=== PATIENT | male | born 1975 | race Caucasian/White ===

== ENCOUNTER 2023-08-15 00:48 | Day surgery (SDC) | payer BC, SELFPAY ==
[2023-07-22 10:07] VITALS: BMI 25.9
--- NOTE | 2023-08-13 11:21 | SUR.PREOP ---
Patient called regarding upcoming procedure. Message left on pt's voicemail regarding appointment times..
[2023-08-15 08:47] VITALS: BP 123/84; PULSE 86; RESP 16; TEMP 36.2; O2SAT 99
[2023-08-15] MEDS: LACTATED RINGERS 1,000 ML 150 ML IV CONT (08:55)
--- NOTE | 2023-08-15 09:25 | P.PNAN_ITS ---
Anes - Initial Pre Proc Eval Procedure: Operation Date: 08/15/23 10:00 Proposed Procedures p Screening Colonoscopy - Gutierrez Ramires MD Date/Time: 08/15/23 09:25 Surgeon: Gutierrez Ramires MD Pre Op Diagnosis: neoplasm screening Patient Data Age: 47 Gender: M Height: 1.8 m Weight: 83.5 kg Last Vital Signs Temp 97.2 F L 08/15/23 08:47 Pulse 86 08/15/23 08:47 Resp 16 08/15/23 08:47 BP 123/84 08/15/23 08:47 Pulse Ox 99 08/15/23 08:47 O2 Del Method Room Air 08/15/23 08:47 Allergies Allergy/AdvReac Type Severity Reaction Status Date / Time NKDA Allergy Mild Other Uncoded 08/15/23 08:46 Home Medications Medication Instructions Recorded Confirmed Type esomeprazole magnesium 40 mg 40 mg PO DAILY 07/22/23 08/15/23 History capsule,delayed release trazodone 50 mg tablet 50 mg PO HS 07/22/23 08/15/23 History Patient hx anesthesia problems: none Family hx anesthesia problems: none Results Review: All pre-operative results and documents have been reviewed as part of the pre- operative evaluation. [facility] Social History Social History Smoking status: Never smoker Substance use type: does not use Living arrangements: other Additional living arrangements comments: with sp Anes - Eval Final PreProcedure Day of Procedure 08/15/23 09:25 Patient weight: normal Heart: regular rate and rhythm Lungs: clear to auscultation Airway: Mallampati scale class II Neurological: alert and oriented Last oral intake: >/= 8 hours ASA classification: II Emergent: no Anesthetic plan: proceed Anesthesia type and monitoring: general GIVS and standard monitoring Results Review: All pre-operative results and documents have been reviewed as part of the pre- operative evaluation. Informed Consent: The patient's anesthetic plan and its attendant risks and benefits were discussed with the patient/family/POA. Questions were solicited and answers provided to the satisfaction of the patient/family/POA.
--- NOTE | 2023-08-15 10:27 | PM.HPGS ---
History of Present Illness History of Present Illness Consent: Risks, benefits, and alternatives have been discussed and questions answered. Patient agrees to proceed with procedure. Chief complaint: neoplasm screening Narrative: Juanjose Lucia III is a 47 year old male here for first screening colonoscopy Review of Systems Constitutional: Constitutional: Denies headache(s) and Denies weakness Eyes: Eyes: Denies blurry vision ENT: Reports Normal hearing present, Denies headache(s) and Denies neck pain Cardiovascular: Cardiovascular: Denies chest pain and Denies dyspnea Respiratory: Respiratory: Denies dyspnea Gastrointestinal: Gastrointestinal: Reports no additional gastrointestinal complaints Genitourinary: Genitourinary: Denies dysuria Musculoskeletal: Musculoskeletal: Denies neck pain Integumentary/Breasts: Skin/Breast: Denies dry skin Neurologic: Reports Normal hearing present, Denies headache(s) and Denies weakness Psychiatric: Psychiatric: Denies anxiety Endocrine: Endocrine: Denies change in body appearance Hematologic/Lymphatic: Hematologic/Lymphatic: Denies easy bleeding Allergic/Immunologic: Allergic/Immunologic: Denies urticaria PMFSH Past Medical History Medical History (Updated 08/15/23 @ 10:27 by Gutierrez Ramires MD) Colon cancer screening Social History Social History Smoking status: Never smoker Substance use type: does not use Living arrangements: other Additional living arrangements comments: with sp Meds Home Medications and Allergies Home Medications Medication Instructions Recorded Confirmed Type esomeprazole magnesium 40 mg 40 mg PO DAILY 07/22/23 08/15/23 History capsule,delayed release trazodone 50 mg tablet 50 mg PO HS 07/22/23 08/15/23 History Allergies Allergy/AdvReac Type Severity Reaction Status Date / Time NKDA Allergy Mild Other Uncoded 08/15/23 08:46 Vital Signs Vital Signs - 24 hr 08/15/23 08:47 Temperature 97.2 F L Pulse Rate 86 Respiratory Rate 16 Blood Pressure 123/84 Pulse Oximetry 99 Oxygen Delivery Room Air Exam Const: General: comfortable and no acute distress HENMT: Face/Nose/Sinus: Normal nares present Eyes: General: appearance normal, both eyes and all related structures Neck: Neck: no JVD Resp: Auscultation: clear to auscultation bilaterally Cardio: Rate: regular rate Rhythm: regular rhythm GI: Inspection: non-distended GI Palp: Yes Soft to palpation Skin: General skin exam: normal color Neuro: General: gait normal Speech: normal speech Extrem: General: normal to inspection Psych: Mental Status: mental status grossly normal Assessment and Plan Assessment and plan (1) Colon cancer screening: Code(s): Z12.11 - Encounter for screening for malignant neoplasm of colon Status: Acute Assessment and Plan: colonoscopy
[2023-08-15 10:53] VITALS: BP 111/80; PULSE 84; RESP 16; O2SAT 99
[2023-08-15 11:03] VITALS: BP 110/76; PULSE 77; RESP 16; O2SAT 98
[2023-08-15 11:13] VITALS: BP 112/83; PULSE 75; RESP 16; O2SAT 100
== END 2023-08-15 11:25 | disposition home or self-care (01) ==
PROVIDERS: PCP Internal Medicine; Visit Provider Internal Medicine Gastroenterology
PROC: 0DJD8ZZ Inspection of Lower Intestinal Tract, Via Natural or Artificial Opening Endoscopic (ICD-10-PCS; CPT 45378; principal; 2023-08-15 10:00)
DX: Z12.11 Encounter for screening for malignant neoplasm of colon (principal); D12.0 Benign neoplasm of cecum; D12.5 Benign neoplasm of sigmoid colon; K57.30 Diverticulosis of large intestine without perforation or abscess without bleeding; K64.8 Other hemorrhoids
CPT/HCPCS: 45385; 88305; J2704; J7120

== ENCOUNTER 2024-09-14 12:20 | Emergency (ER) | payer BC, SELFPAY ==
--- NOTE | ~2024-09-14 | XR_ITS ---
CHEST RADIOGRAPH CLINICAL HISTORY: L chest pain . COMPARISON: 03/05/2013 TECHNIQUE: Single portable view of the chest. FINDINGS The cardiomediastinal silhouette is unremarkable. The lungs are clear. Visualized osseous structures and soft tissues are unremarkable. IMPRESSION: No focal infiltrate or effusion. Reviewed, dictated and finalized at location A. COVERER
--- NOTE | 2024-09-14 12:25 | ECG_ITS ---
This report was recreated on [id number] on September 15, 2024. Original report was signed by Dr. Maximus Lamas on September 14, 2024 at 12:52. SINUS RHYTHM INCOMPLETE RIGHT BUNDLE BRANCH BLOCK LOW QRS VOLTAGE IN PRECORDIAL LEADS BASELINE ARTIFACT- I, II, III, AVR, AVL, AVF, V# BORDERLINE ECG No previous ECG available for comparison MTDD
[2024-09-14 12:45] LABS: Basophils Percent Auto 0.6 % (0.2-1.2); Eosinophils Absolute Auto 0.2 K/mm3 (0-0.3); Eosinophils Percent Auto 3.2 % (0-4.4); Hematocrit 49.1 % (42.0-52.0); Hemoglobin 16.9 g/dL (14.0-18.0); Immature Granulocyte Absolute 0.02 K/mm3 (0.00-0.031); Immature Granulocyte Percent A 0.4 % (0-0.5); Lymphocytes Absolute Auto 0.81 K/mm3 (0.9-3.2); Lymphocytes Percent Auto 17.1 % (18.3-44.2); Mean Corpuscular HGB Conc 34.4 g/dl (32-36); Mean Corpuscular Hemoglobin 31.3 pg (26-34); Mean Corpuscular Volume 90.9 fl (80-100); Mean Platelet Volume 10.3 fl (7.4-10.4); Monocytes Absolute Auto 0.4 K/mm3 (0.1-0.6); Monocytes Percent Auto 7.4 % (2.6-8.5); Neutrophils Absolute Auto 3.4 K/mm3 (1.3-6.7); Neutrophils Percent Auto 71.3 % (45.5-73.1); Platelet Count Result 247 k/mm3 (150-375); Red Cell Distribution Width 11.8 % (11.5-14.5); White Blood Count 4.7 K/mm3 (4.5-10.0)
--- NOTE | 2024-09-14 12:52 | PC.NURSE ---
Called twice for triage. Pt not in waiting room or outside
[2024-09-14 13:00] LABS: Alanine Aminotransferase 37 U/L (6-50); Albumin Level 4.5 g/dL (3.5-5.1); Alkaline Phosphatase 54 U/L (38-126); Aspartate Amino Transferase 33 U/L (17-59); Bilirubin,Total 0.8 mg/dL (0.2-1.3); Blood Urea Nitrogen 18 mg/dL (9-20); Calcium 9.8 mg/dL (8.4-10.2); Carbon Dioxide 27 mmol/L (22-30); Estimated Glomerular Filt Rate 59; Glucose 96 mg/dL (65-110); Lipase 194 U/L (23-300)
[2024-09-14 13:07] LABS: Troponin I < 0.012 ng/mL (0.000-0.034)
[2024-09-14 13:10] LABS: Anion Gap 10 mmol/L (4-12); Chloride 101 mmol/L (98-107); Potassium 3.9 mmol/L (3.4-5.0); Sodium 138 mmol/L (137-145)
[2024-09-14 13:11] LABS: Prothrombin Time 13.1 Seconds (11.1-14.7)
[2024-09-14 13:12] LABS: Partial Thromboplastin Time 27.7 Seconds (22.3-36.8)
--- NOTE | 2024-09-14 15:47 | ECG_ITS ---
Test Date: 2024-09-14 16:13:45 Measurements Intervals [place] Rate: 75 P: 43 [place]: 143 QRS: -26 QRSD: 92 T: 26 QT: 349 QTc: 390 Interpretive Statements SINUS RHYTHM INCOMPLETE RIGHT BUNDLE BRANCH BLOCK BASELINE ARTIFACT- I, II, V1 BORDERLINE ECG Compared to ECG 09/14/2024 12:25:25 No significant changes Electronically Signed On 09-14-2024 20:14:05 IT SUPPORT CONSULTANT by Maximus Lamas D.O.
--- NOTE | 2024-09-14 16:07 | ECG_ITS ---
Test Date: 2024-09-14 12:25:25 Measurements Intervals [place] Rate: 70 P: 52 [place]: 142 QRS: -13 QRSD: 99 T: 44 QT: 359 QTc: 389 Interpretive Statements SINUS RHYTHM INCOMPLETE RIGHT BUNDLE BRANCH BLOCK LOW QRS VOLTAGE IN PRECORDIAL LEADS BASELINE ARTIFACT- I, II, III, AVR, AVL, AVF, V1-V4 BORDERLINE ECG No previous ECG available for comparison Electronically Signed On 09-14-2024 19:59:24 INK PRINTER by Maximus Lamas D.O.
--- OUTSIDE RECORDS SUMMARY | 2024-09-14 16:14 | XMS_ITS | Clinical Summary ---
Author Organization [facility] Address [address] [address] Phone Care Team Providers Care Otolaryngology Surgeon Name Role Phone Unavailable Primary Care Provider Unavailabl e Allergies No known active allergies Medications cetirizine (ZyrTEC) 10 MG Tablet 10 mg. 10/20/2007 Active esomeprazole (NexIUM) 40 MG CAPSULE DELAYED RELEASE 09/07/2021 Active Active Problems No known active problems Immunizations Immunization Administration Dates Next Due Covid-19 Vaccine, Vector-nr, Rs-ad26, Pf, 0.5 Ml ([employer]) 11/06/2020 DTP Vaccine 02/09/1982, 8,02/01/1977,1976,1976 Hepatitis A And Hepatitis B Vaccine 08/16/2010 MMR Vaccine 02/19/1991 Measles Vaccine 11/29/1977 Mumps Vaccine 09/03/1978 Rubella Vaccine 09/03/1978 TD VACCINE 02/19/1991 TDAP Vaccine 08/16/2010 Family History Medical History Relation Name Comments Alzheimer's Disease Father Relation Name Status Comments Father Social History Tobacco Use Types Packs/Day Years Used Date Smoking Tobacco: Never Smokeless Tobacco: Never Tobacco Cessation:Counseling Given: No Alcohol Use Standard Drinks/Week Comments Not Currently 0 (1 standard drink = 0.6 oz pur e alcohol) Sexually Active Control Partners Comments Not Currently Sex and Gender Information Value Date Recorded Sex Assigned at Not on file Legal Sex Male 9:36 PM CDT Gender Identity Not on file Sexual Orientation Not on file Last Filed Vital Signs Vital Sign Reading Time Taken Comments Blood Pressure 118/70 10/22/2021 9:11 AM CDT Pulse 68 10/22/2021 9:11 AM CDT Temperature - - Respiratory Rate 18 10/22/2021 9:11 AM CDT Oxygen Saturation 99% 10/22/2021 9:11 AM CDT Inhaled Oxygen Concentration - - Weight 88 kg (194 lb) 10/22/2021 9:11 AM CDT Height 180.3 cm (5' 11 ) 10/22/2021 9:11 AM CDT Body Mass Index 27.06 10/22/2021 9:11 AM CDT Plan of Treatment Health Maintenance Due Date Last Done Comments Hepatitis C Virus (HCV) Screening 1976 Hepatitis B Immunization (2 of 3 - Hep B Twinrix 3-dose series) 09/13/2010 08/16/2010 DTaP/Tdap/Td Immunization (7 - Td or Tdap) 08/16/2020 08/16/2010, 02/19/1991, 02/09/1982, Additional history exists Colonoscopy 2021 Colorectal Cancer Screening 2021 Influenza Immunization (#1) 2024 SARS-COV-2 Immunization (2 - season) 2024 11/06/2020 Respiratory Syncytial Virus (RSV) Immunization (Adult) (1 - 1-dose 75+ series) 2051 Meningococcal Immunization (ACWY) Aged Out No longer eligible based on patient's age to complete this topic Pneumococcal Immunization Combined Aged Out No longer eligible based on patient's age to complete this topic Rotavirus Immunization Aged Out No lo nger eligible based on patient's age to complete this topic Insurance
[2024-09-14 16:16] VITALS: BP 116/82; PULSE 77; RESP 21; O2SAT 98
[2024-09-14 16:31] VITALS: BP 121/86; PULSE 83; RESP 13; O2SAT 97
--- NOTE | 2024-09-14 16:43 | PC.NURSE ---
according to intake/cigar patcher's, this pt was accidentally registered under wrong name. pt had Chest Pain protocol performed including initial blood work and ekg. pt was then put under correct name and results were printed for staff on paper chart. notified provider of this
[2024-09-14 16:45] VITALS: PULSE 81; RESP 18; O2SAT 99
[2024-09-14 16:50] LABS: Troponin I < 0.012 ng/mL (0.000-0.034)
[2024-09-14 16:56] VITALS: BP 114/67; PULSE 74; RESP 12; TEMP 36.7; O2SAT 99
--- NOTE | 2024-09-14 16:56 | ED.CHESTPAIN ---
HPI - Chest Pain General Chief Complaint: Chest Pain Stated Complaint: chest pain Time Seen by Provider: 09/14/24 16:15 History of Present Illness HPI narrative: Patient presents here with chest pain, he has had bad insomnia since COVID, doing well on trazodone, but it stopped working, so a post doc band, worked well for the 1st few days but then had some slight palpitations and last night had palpitations and left-sided chest discomfort and cannot fall asleep. Called his doctor told him to get checked out. Related Data Home Medications ?Medication ?Instructions ?Recorded ?Confirmed ?Last Taken ?Type esomeprazole magnesium 40 mg 40 mg PO DAILY 07/22/23 08/15/23 08/14/23 History capsule,delayed release trazodone 50 mg tablet 50 mg PO HS 07/22/23 08/15/23 08/14/23 History Allergies Allergy/AdvReac Type Severity Reaction Status Date / Time Penicillins Allergy Mild Other Unverified 03/26/24 10:03 NKDA Allergy Mild Other Uncoded 08/15/23 08:46 Review of Systems Review of Systems: All systems reviewed & are unremarkable except as noted in HPI and below PMFSH Past Medical History Medical History (Updated 09/14/24 @ 17:35 by Kaye Beckwith MD) Colon cancer screening Hypertriglyceridemia Impaired fasting blood sugar Encounter for screening for malignant neoplasm of prostate Screening cholesterol level Hypertension Erectile dysfunction Low testosterone Hypertriglyceridemia Impaired fasting blood sugar Encounter for screening for malignant neoplasm of prostate Screening cholesterol level Hypertension Erectile dysfunction Low testosterone Surgical History Surgical History (Updated 09/14/24 @ 16:28 by Gustavo Anderson) No history of previous surgery No history of previous surgery Social History Social History Smoking status: Never smoker Substance use type: does not use Living arrangements: other Additional living arrangements comments: with sp Exam Narrative: EXAMINATION OF ORGAN SYSTEMS/BODY AREAS: Constitutional: Vital signs per nursing GENERAL:[No acute distress, non-toxic appearing.] HEAD: Normal with no signs of head trauma. EYES: EOMI, conjunctiva normal ENT: Hearing grossly intact LUNGS: Nonlabored breathing. HEART: [Regular rate and rhythm], normal pulses ABD: [Soft], [nontender to palpation] EXT: Normal range of motion SKIN: [No rashes or lesions.] NEURO: [Alert and oriented x 3. No gross focal sensory or strength deficits.] PSYCH: Normal affect Course Vital Signs Vital signs: Vital Signs Pulse Rate 77 09/14/24 16:16 Respiratory Rate 21 H 09/14/24 16:16 Blood Pressure 116/82 09/14/24 16:16 Pulse Oximetry 98 09/14/24 16:16 Temperature 98.0 F 09/14/24 16:56 Pulse Rate 74 09/14/24 16:56 Respiratory Rate 12 09/14/24 16:56 Blood Pressure 114/67 09/14/24 16:56 Pulse Oximetry 99 09/14/24 16:56 Oxygen Delivery Room Air 09/14/24 16:56 MDM - Chest Pain MDM Narrative Medical decision making narrative: ED COURSE AND MEDICAL DECISION MAKINM presenting with chest pain. EKG done in triage negative for acute ischemic changes. Cardiac workup is initiated. EKG: Performed in triage and interpreted by me. Normal sinus rhythm. Rate [75]. Normal axis. NM normal. QRS duration normal. QTc normal. No pathologic Q waves. No ST segment elevation or depression to suggest acute ischemia. No RV strain pattern. Chest x-ray on my independent interpretation does not show any obvious acute consolidation or pneumothorax HEART score is 0 with no acute ischemic changes on EKG and negative troponin making ACS unlikely. Negative PERC making PE unlikely. Presentation not consistent with dissection or aneurysm without radiation of pain or pulse deficits. CXR negative for mediastinal widening. No abdominal pain or signs of sepsis that would be concerning for esophageal perforation or mediastinitis. No cardiomegaly or JVD to suggest pericardial effusion/tamponade. HEART Score: 1. (Risk of major adverse cardiac events over 6 weeks: Score of 0-3 is low risk <2% ; Score of 4-6 is moderate risk ~12-15%; Score of 7-12 is high risk ~50%). On repeat evaluation just prior to discharge, the patient is no acute distress. I had a long discussion with the patient and with shared decision making, [he] is comfortable with outpatient management. [He] was given clear return instructions by myself in person as well as on discharge paperwork. Lab Data 09/14/24 12:32 09/14/24 12:32 Labs: Lab Results 09/14/24 09/14/24 09/14/24 Range/Units 12:32 12:33 16:21 WBC 4.7 (4.5-10.0) K/mm3 RBC 5.40 (4.6-6.20) M/mm3 Hgb 16.9 (14.0-18.0) g/dL Hct 49.1 (42.0-52.0) % MCV 90.9 (80-100) fl MCH 31.3 (26-34) pg MCHC 34.4 (32-36) g/dl RDW 11.8 (11.5-14.5) % Plt Count 247 (150-375) k/mm3 MPV 10.3 (7.4-10.4) fl Immature Gran % (Auto) 0.4 (0-0.5) % Neut % (Auto) 71.3 (45.5-73.1) % Lymph % (Auto) 17.1 L (18.3-44.2) % [place] % (Auto) 7.4 (2.6-8.5) % Eos % (Auto) 3.2 (0-4.4) % Baso % (Auto) 0.6 (0.2-1.2) % Lymph # (Auto) 0.81 L (0.9-3.2) K/mm3 [place] # (Auto) 0.4 (0.1-0.6) K/mm3 Eos # (Auto) 0.2 (0-0.3) K/mm3 Baso # (Auto) 0.0 (0.0-0.1) K/mm3 Abs Immat Gran (auto) 0.02 (0.00-0.031) K/mm3 Absolute Neuts (auto) 3.4 (1.3-6.7) K/mm3 Absolute Nucleated RBC 0.000 (0.0-0.012) K/mm3 Nucleated RBC % 0.0 (0.0-0.2) % PT 13.1 (11.1-14.7) Seconds INR 1.0 APTT 27.7 (22.3-36.8) Seconds Sodium 138 (137-145) mmol/L Potassium 3.9 (3.4-5.0) mmol/L Chloride 101 (98-107) mmol/L Carbon Dioxide 27 (22-30) mmol/L Anion Gap 10 (4-12) mmol/L BUN 18 (9-20) mg/dL Creatinine 1.30 (0.7-1.3) mg/dL Estimated GFR 59 (59 - ) Glucose 96 (65-110) mg/dL Calcium 9.8 (8.4-10.2) mg/dL Total Bilirubin 0.8 (0.2-1.3) mg/dL AST 33 (17-59) U/L ALT 37 (6-50) U/L Alkaline Phosphatase 54 (38-126) U/L Troponin I < 0.012 < 0.012 (0.000-0.034) ng/mL Total Protein 8.0 (6.3-8.2) g/dL Albumin 4.5 (3.5-5.1) g/dL Lipase 194 (23-300) U/L Influenza A (RT-PCR) Negative (Negative) Influenza B (RT-PCR) Negative (Negative) RSV (RT-PCR) Negative (Negative) SARS-CoV-2 RNA (RT-PCR) Negative (Negative) Discharge Plan Discharge Clinical Impression: Atypical chest pain Patient Disposition: Home, Self-Care Condition: Stable Instructions: Chest Pain (ED) Additional Instructions: Please call your doctor for follow-up as you may need changes to your medication, you can always return to the emergency room for any further issues. Patient Language: Frisian Prescriptions: No Action trazodone 50 mg tablet 50 mg PO HS esomeprazole magnesium 40 mg capsule,delayed release(DR/EC) 40 mg PO DAILY Follow-up/Referrals: Guillermo,Barber Marsh MD [Primary Care Provider] - Sridevi Chopra PARiccardoC [Physician Fitness And Wellness Instructor] -
[2024-09-14 17:02] LABS: Influenza A QL RT-PCR Negative (Negative); Influenza B QL RT-PCR Negative (Negative); RSV RNA, RT-PCR Negative (Negative); SARS-CoV-2 RNA PCR Negative (Negative)
[2024-09-14 17:15] VITALS: PULSE 68; RESP 17; O2SAT 98
[2024-09-14 17:48] VITALS: BP 101/71; PULSE 72; RESP 20; TEMP 36.8; O2SAT 99
== END 2024-09-14 23:15 | disposition home or self-care (01) ==
PROVIDERS: Emergency Provider Emergency Medicine; PCP Internal Medicine
DX: R07.89 Other chest pain (principal); Z20.822 Contact with and (suspected) exposure to COVID-19; E78.5 Hyperlipidemia, unspecified; I10 Essential (primary) hypertension
CPT/HCPCS: 36415; 71045; 80053; 83690; 84484; 85025; 85610; 85730; 87637; 93005; 99284

== ENCOUNTER 2024-09-17 08:59 | Outpatient (CLI) | payer BC, SELFPAY ==
--- NOTE | ~2024-09-17 | XR_ITS ---
HISTORY: MYALGIA COMPARISON: None TECHNIQUE: 2 views of the thoracic spine were performed FINDINGS: No acute compression fracture is present. Bone mineralization is age-appropriate. No significant degenerative disease. IMPRESSION: Unremarkable radiographic evaluation of the thoracic spine, as detailed above. Reviewed, dictated and finalized at location A. E I PARAPROFESSIONAL
--- NOTE | ~2024-09-17 | XR_ITS ---
EXAMINATION: XR chest 2V 09/17/2024 09:39 INDICATION: Chest pain PROCEDURE: 2 view chest COMPARISON: 09/14/2024 and 03/05/2013 FINDINGS: The lungs are clear. The cardiomediastinal silhouette is within normal limits. There are no pleural effusions. There is no pneumothorax suspected. There are cholecystectomy clips. IMPRESSION: 1: NO ACUTE CARDIOPULMONARY DISEASE. Reviewed, dictated and finalized at location B. TH CLUB MANAGER
--- NOTE | ~2024-09-17 | US_ITS ---
US abdomen complete EXAMINATION: US Abdomen Complete INDICATION: Gastroesophageal reflux disease PROCEDURE: Realtime High Resolution abdomen ultrasound. COMPARISON: No prior studies for comparison FINDINGS: Gallbladder surgically absent. Common bile duct measures 4 mm. Liver echotexture is increased, consistent with fatty infiltration.. Pancreas within normal limits. Pancreatic tail is obscured by bowel gas. Spleen is unremarkeable. Renal echotexture is within norm al limits bilaterally without hydronephrosis, contour deforming mass or renal stone. Right kidney angel sures 12.2 cm. Left kidney measures 10.2 cm. Visualized aspects of the aorta and IVC are within normal limits. Portal vein is patent. No sonograph ic Pickens's sign indicated by the technologist. IMPRESSION: 1: Fatty infiltration of the liver. Reviewed, dictated and finalized at location B. PREAD CUTTER HAND
== END 2024-09-17 09:00 | disposition home or self-care (01) ==
PROVIDERS: PCP Internal Medicine; Visit Provider Internal Medicine
DX: K21.9 Gastro-esophageal reflux disease without esophagitis (principal); K76.0 Fatty (change of) liver, not elsewhere classified
CPT/HCPCS: 71046; 72070; 76700

== ENCOUNTER 2025-03-31 07:51 | Outpatient (CLI) | payer BC, SELFPAY ==
--- NOTE | ~2025-03-31 | XR_ITS ---
EXAMINATION: XR hand RT min 3V DATE: 03/31/2025 08:12 INDICATION: Sprain metacarpophalangeal. Attention without TECHNIQUE: 3 images of the right hand were obtained. COMPARISON: None. FINDINGS: Bone mineralization is within normal limits. No fracture. No dislocation. Mild joint space narrowing in the first carpometacarpal joint. No sclerotic or destructive bone lesion identified. IMPRESSION: 1. No fracture. No dislocation. 2. Mild joint space narrowing in the first carpometacarpal joint. If symptoms persist or worsen, consider a short-term follow-up study or MRI imaging for further assessment. Reviewed, dictated and finalized at location Q. IMPRESSION: 1. No fracture. No dislocation. 2. Mild joint space narrowing in the first carpometacarpal joint. If symptoms persist or worsen, consider a short-term follow-up study or MRI rachana ging for further assessment.
--- NOTE | ~2025-03-31 | XR_ITS ---
EXAMINATION: XR finger 1st RT min 2V DATE: 03/31/2025 08:17 INDICATION: Sprain metacarpophalangeal first digit TECHNIQUE: 3 images of the right first digit were obtained. COMPARISON: None FINDINGS: Bone mineralization is within normal limits. No fracture. No dislocation. Mild joint space narrowing in the first carpometacarpal joint. Soft tissue swelling about the first digit. No sclerotic or destructive bone lesions identified. IMPRESSION: 1. No fracture. No dislocation. 2. Mild joint space narrowing in the first carpometacarpal joint. If symptoms persist or worsen, consider a short-term follow-up study or MRI imaging for further assessment. Reviewed, dictated and finalized at location Q. IMPRESSION: 1. No fracture. No dislocation. 2. Mild joint space narrowing in the first carpometacarpal joint. If symptoms persist or worsen, consider a short-term follow-up study or MRI rachana ging for further assessment.
--- OUTSIDE RECORDS SUMMARY | 2025-03-31 07:56 | XMS_ITS | Clinical Summary ---
Author Organization [facility] Address [address] [address] Phone Care Team Providers Care Resin Coater Name Role Phone Unavailable Primary Care Provider Unavailabl e Allergies No known active allergies Medications cetirizine (ZyrTEC) 10 MG Tablet 10 mg. 10/20/2007 Active esomeprazole (NexIUM) 40 MG CAPSULE DELAYED RELEASE 09/07/2021 Active Active Problems No known active problems Immunizations Immunization Administration Dates Next Due Covid-19 Vaccine, Vector-nr, Rs-ad26, Pf, 0.5 Ml ([employer]) 11/06/2020 DTP Vaccine 02/09/1982, 8,02/01/1977,1976,1976 Hepatitis A [...] 9:11 AM CDT Height 180.3 cm (5' 11) 10/22/2021 9:11 AM CDT Body Mass Index 27.06 10/22/2021 9:11 AM CDT Plan of Treatment Health Maintenance Due Date Last Done Comments Hepatitis C Virus (HCV) Screening 1975 Hepatitis B Immunization (2 of 3 - Hep B Twinrix 3-dose series) 09/13/2010 08/16/2010 DTaP/Tdap/Td Immunization (7 - Td or Tdap) 08/16/2020 08/16/2010, 02/19/1991, 02/09/1982, Additional history exists Cologuard 2021 Colonoscopy 2021 Colorectal Cancer Screening 2021 Immunochemical Fecal Occult Blood 2021 SARS-COV-2 Immunization ( season) 2024 11/06/2020 Influenza Immunization (#1) 2025 Respiratory Syncytial Virus (RSV) Immunization (Adult) (1 - 1-dose 75+ series) 2051 Human Papillomavirus (HPV) Immunization Aged Out No longer eligible based on patient's age to complete this topic Meningococcal Immunization (ACWY) Aged Out No longer eligible based on patient's age to complete this topic Pneumococcal Immunization Combined Aged Out No longer eligible based on patient's age to complete this topic Rotavirus Immunization Aged Out No lo nger eligible based on patient's age to complete this topic Insurance [facility] Address: [facility] [id number] [place] [address]
== END 2025-03-31 07:52 | disposition home or self-care (01) ==
PROVIDERS: PCP Internal Medicine; Visit Provider Nurse Practitioner Adult Health
DX: S63.641A Sprain of metacarpophalangeal joint of right thumb, initial encounter (principal); X58.XXXA Exposure to other specified factors, initial encounter
CPT/HCPCS: 73130; 73140